=== PATIENT | female | born 1940 | race Caucasian/White ===

== ENCOUNTER → 2020-07-22 10:58 | Outpatient (BNVA) | payer MEDICARE, SELFPAY | PROVIDERS: PCP Internal Medicine Endocrinology, Diabetes & Metabolism; Visit Provider Physician Assistant | DX: G56.02 Carpal tunnel syndrome, left upper limb (principal) | CPT/HCPCS: 20526; 20550; 99212; J1020 ==

== ENCOUNTER → 2020-11-26 09:33 | Outpatient (BNVA) | payer MEDICARE, SELFPAY | PROVIDERS: PCP Internal Medicine Endocrinology, Diabetes & Metabolism; Visit Provider Physician Assistant | DX: G56.02 Carpal tunnel syndrome, left upper limb (principal) | CPT/HCPCS: 20526; 99212; J1020 ==

== ENCOUNTER → 2021-09-14 12:05 | Outpatient (BNVA) | payer MEDICARE, SELFPAY | PROVIDERS: PCP Internal Medicine Endocrinology, Diabetes & Metabolism; Visit Provider Physician Assistant | DX: G56.02 Carpal tunnel syndrome, left upper limb (principal) | CPT/HCPCS: 20550; 99212; J1020 ==

== ENCOUNTER → 2022-01-05 10:37 | Outpatient (BNVA) | payer MEDICARE, SELFPAY | PROVIDERS: PCP Internal Medicine Endocrinology, Diabetes & Metabolism; Visit Provider Physician Assistant | DX: G56.02 Carpal tunnel syndrome, left upper limb (principal) | CPT/HCPCS: 20526; 99212; J1100 ==

== ENCOUNTER 2022-02-14 14:38 | Outpatient (REF) | payer MEDICARE, SELFPAY ==
--- NOTE | ~2022-02-14 | XR_ITS ---
EXAMINATION: XR HAND, LEFT CLINICAL INFORMATION: Pain in left hand. COMPARISON: None TECHNIQUE: PA, lateral, and oblique views of the left hand. FINDINGS: There is loss of PIP and DIP joint space with periarticular spurring and soft tissue swelling. No visible acute fracture, dislocation or subluxation seen. There is diffuse osteopenia without acute fracture or dislocation. There is mild loss of 1st carpometacarpal joint space with moderate periarticular spurring. 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 There is diffuse mild osteopenia.
== END 2022-02-14 14:39 | disposition home or self-care (01) ==
LOC: HO.HOSX 14:38
PROVIDERS: PCP Internal Medicine Endocrinology, Diabetes & Metabolism; Visit Provider Orthopaedic Surgery
DX: M18.12 Unilateral primary osteoarthritis of first carpometacarpal joint, left hand (principal); G56.02 Carpal tunnel syndrome, left upper limb
CPT/HCPCS: 73130; 99212; J1020

== ENCOUNTER 2022-03-09 11:24 | Day surgery (SDC) | payer MEDICARE, SELFPAY ==
[2022-03-09 12:20] VITALS: BP 135/71; PULSE 94; RESP 16; TEMP 37.1; O2SAT 94
[2022-03-09] MEDS: HYDROcodone Bit/Acetam 5/325 TABLET 1 TAB PO (13:26)
--- NOTE | 2022-03-09 13:37 | MHC.SHP ---
Pre-Procedural Eval Section A Date of Service: 03/09/22 The patient is an INPATIENT: No Changes since office visit: No Cold of Flu in the past 2 weeks, No New Medical Problems, No Changes in Medication and No Patient answered all questions The History & Physical has been completed within 30 days and I have reviewed it.: Yes Section B Chief Complaint: Carpal tunnel syndrome, left upper limb Allergies: Allergies Allergy/AdvReac Type Severity Reaction Status Date / Time codeine [CODEINE] Allergy Unknown STOMACH Verified 02/14/22 15:37 UPSET morphine [MORPHINE] Allergy Unknown STOMACH Verified 02/14/22 15:37 UPSET oxycodone [From PERCOCET] Allergy Unknown STOMACH Verified 02/14/22 15:37 UPSET carisoprodol [From SOMA] AdvReac Unknown VOMITING Verified 02/14/22 15:37 hydromorphone [From DILAUDID] AdvReac Unknown VOMITING Verified 02/14/22 15:37 Plan I have reviewed the history and physical and performed a pertinent physical examination on my patient. No changes have occurred unless specified.
--- NOTE | 2022-03-09 13:37 | W.PM.OPN ---
Operative Note Operative Note Date of Service: 03/09/22 Narrative: Preop diagnosis: 1. left Carpal tunnel syndrome Postop diagnosis: same Procedure: 1. left Carpal tunnel release Surgeon: Haylie Eason MD Anesthesia: local block using 1% lidocaine with epinephrine Findings: Thickened transverse carpal ligament. EBL: Less than 5 mL Specimens: None Complications: None Disposition: Brought to recovery room in stable condition Plan: Follow-up for 10-14 days for wound check and suture removal Indications: The patient is 81 years old, with left carpal tunnel syndrome that has been unresponsive to nonoperative management. The risks and benefits of operative treatment including but not limited to risk of damage to blood vessels, nerves, tendons, infection, persistent pain, persistent symptoms, or possible need for additional surgery were discussed with the patient and the patient wishes to proceed with surgery. Procedure: Once consent was obtained a local block was performed using a combination of 1% lidocaine with epinephrine. ?Of note, perhaps 15-20 minutes after administering her local block the patient complained of 10/10 pain in her fingers and thumb.? There was no significant discomfort when administering the block.? Her fingers were noted to be warm and pink.? She had good active range of motion of the digits.? The area of the local block, which was lidocaine with epinephrine [id number] and some bicarb, was pale as we would expect and well anesthetized.? Again the fingers were warm and pink? and were Numb in the median nerve distribution.? Patient very much wanted to have some pain medication and express that on multiple occasions.? I end up giving her 1 tablet of Vicodin 5-325.? After that she said her fingers were feeling better.? The patient was then brought back to the operating suite and placed on the operative table in supine position. A tourniquet was applied to the proximal aspect of the left upper extremity and the limb was prepped and draped in a standard surgical fashion. Once assured that we had a good block, a 1.5 cm longitudinal incision was made centered over the carpal tunnel. The incision was made through the skin to the subcutaneous tissues using a #15 blade. Dissection was made down to the level of the transverse carpal ligament with care being taken to protect the palmar cutaneous nerve. Once the transverse carpal ligament was clearly visualized, a longitudinal incision was made in the transverse carpal ligament 1st using a #15 blade, then using tenotomy scissors under direct visualization. Care was taken to look for and protect the motor branch of the median nerve when seen in this area. Once satisfied with our carpal tunnel release the wound was copiously irrigated with normal saline and hemostasis was obtained with a brief period of local pressure. The skin edges were reapproximated with some 5.0 nylon suture material and a sterile dressing was applied. she had 0 pain after her carpal tunnel release. The patient appears to have tolerated the procedure well and with no complications. All digits were well vascularized at the conclusion of the case.
--- NOTE | 2022-03-09 14:48 | PC.NURSE ---
PT REMAINS AWAKE, A/O X'S 3 WITHOUT COMPLAINT OF PAIN/DISCOMFORT AT THIS TIME. PATIENT WAS GIVEN VICODIN FOR COMPLAINT OF LEFT HAND PAIN. PT STATES FEELING BETTER AT THIS TIME. PT'S DAUGHTER AT BEDSIDE. PATIENT DISCHARGED HOME WITH DAUGHTER. DAUGHTER STATES SHE IS SPENDING THE NIGHT WITH HER MOM.
--- NOTE | 2022-03-09 14:53 | PC.NURSE ---
POST OP VSS. BP 125/58, P93, RR 20, 02 SAT 96%. TEMP 99.2
== END 2022-03-09 14:52 | disposition home or self-care (01) ==
PROVIDERS: PCP Internal Medicine Endocrinology, Diabetes & Metabolism; Visit Provider Orthopaedic Surgery
PROC: (CPT 64721; principal; 2022-03-09 13:00)
DX: G56.02 Carpal tunnel syndrome, left upper limb (principal); M18.12 Unilateral primary osteoarthritis of first carpometacarpal joint, left hand; R20.0 Anesthesia of skin; J45.909 Unspecified asthma, uncomplicated; Z79.51 Long term (current) use of inhaled steroids; Z79.899 Other long term (current) drug therapy; Z88.8 Allergy status to other drugs, medicaments and biological substances; Z87.891 Personal history of nicotine dependence
CPT/HCPCS: 64721; J0171

== ENCOUNTER 2025-05-04 10:39 | Emergency (ER) | payer MEDICARE, SELFPAY ==
--- NOTE | ~2025-05-04 | XR_ITS ---
EXAMINATION: XR THORACIC SPINE CLINICAL INFORMATION: mid back pain COMPARISON: None available. TECHNIQUE: AP lateral and swimmer's projection. FINDINGS: There is radiopaque material within the vertebral body of T12. Multilevel marginal osteophyte formation and endplate sclerosis and decreased intervertebral disc height at multiple levels. No acute cortical disruption or gross malalignment. Osteopenia versus osteoporosis. Radiopaque anchors in the humeral head seen on the lateral projection. Calcified plaques throughout the aorta. XR/XR thoracic spine 2V IMPRESSION: Multilevel cervical thoracic and upper lumbar spondylosis without acute fracture or gross listhesis on x-ray. Status post kyphoplasty/vertebroplasty likely T12. Electronically signed by: Luke Arnett MD 05/04/2025 12:27 PM EDT
--- NOTE | ~2025-05-04 | XR_ITS ---
EXAMINATION: XR LUMBAR SPINE 2-3 VIEWS HISTORY: low back pain COMPARISON: There are no prior studies for comparison. FINDINGS: AP, lateral, and coned down views of the lumbar spine are submitted. Osseous mineralization is normal. There is mild dextroscoliosis. The patient is status post T12 vertebroplasty. The lumbar vertebral bodies maintain normal height. There is diffuse moderate degenerative disc disease with disc space narrowing and osteophyte formation. There is slight anterolisthesis of L3 on L4. There is osteoarthritis of the facet joints. There is calcification of the abdominal aorta. XR/XR lumbar spine 2-3V IMPRESSION: Mild dextroscoliosis and slight anterolisthesis of L3 on L4. There is moderate degenerative disc disease. Electronically signed by: Leandro Joyce MD 05/04/2025 12:26 PM EDT
[2025-05-04 10:44] VITALS: BP 150/64; PULSE 82; RESP 16; TEMP 36.3; O2SAT 98; BMI 28.3
--- NOTE | 2025-05-04 10:47 | ECG_ITS ---
Test Reason : CP Blood Pressure : */* mmHG Vent. Rate : 78 BPM Atrial Rate : 78 BPM P-R Int : 158 ms QRS Dur : 80 ms QT Int : 382 ms P-R-T Axes : 48 11 45 degrees QTcB Int : 435 ms Normal sinus rhythm Normal ECG When compared with ECG of 10-Apr-2020 14:35, No significant change was found Referred By: Generic ED Physician Electronically Signed By: VIN EMMANUEL
[2025-05-04 10:56] VITALS: BP 139/57; PULSE 77; RESP 17; TEMP 36.9; O2SAT 95
--- NOTE | 2025-05-04 11:01 | PC.NURSE ---
Patient presents to ED c/o upper back pain rated 7/10, non radiating. Patient reports having three herniated disks Pain started abut a week ago and has become worse. Denies numbness/tingling, SOB, chest pain, injuries +CMS +ROM Provider in to see patient Plan of care on going
--- NOTE | 2025-05-04 11:44 | ED_ITS ---
HPI - General Adult General Chief complaint: General Medical Stated complaint: upper back pain Time Seen by Provider: 05/04/25 11:10 Source: patient Mode of arrival: ambulatory Limitations: no limitations History of Present Illness ED Provider: HPI narrative: 84-year-old woman with a history of back issues, she is presenting with upper to mid back pain going on for 2 3 months, the fairly constant, worse at night, worse with positioning, elevation of her shoulders, no fevers or chills no chest pain no shortness of breath no abdominal pain no numbness in her hands she does have history of carpal tunnel release, no numbness in her legs, no loss of bowel or bladder function. No fevers or chills. No dysuria or hematuria. Related Data Home Medications ?Medication ?Instructions ?Recorded ?Confirmed alendronate 5 mg tablet 5 mg PO DAILY 07/22/20 apixaban 5 mg tablet (Eliquis) 5 mg PO BID 07/22/20 atorvastatin 10 mg tablet 10 mg PO BEDTIME 07/22/20 diltiazem HCl 120 mg 120 mg PO DAILY 07/22/20 capsule,extended release 24 hr ipratropium bromide 17 2 puff inhalation Q8H mcg/actuation HFA aerosol inhaler (Atrovent HFA) lorazepam 2 mg/mL oral concentrate 0.25 mg PO BID PRN 07/22/20 propafenone 225 mg 225 mg PO Q12H 07/22/20 capsule,extended release 12 hr estradiol 0.01% (0.1 mg/gram) 1 g vaginal 3XW 02/14/22 vaginal cream Previous Rx's ?Medication ?Instructions ?Recorded cephalexin 500 mg capsule 500 mg PO QID cellulitis 10 days 05/20/22 #40 caps dexamethasone 4 mg tablet 4 mg PO DAILY #6 tabs lidocaine 5 % topical patch 1 patch topical DAILY #30 ea 05/04/25 Allergies Allergy/AdvReac Type Severity Reaction Status Date / Time codeine (CODEINE) Allergy Unknown STOMACH Verified 05/04/25 10:46 UPSET morphine (MORPHINE) Allergy Unknown STOMACH Verified 05/04/25 10:46 UPSET oxycodone (From PERCOCET) Allergy Unknown STOMACH Verified 05/04/25 10:46 UPSET carisoprodol (From SOMA) AdvReac Unknown VOMITING Verified 05/04/25 10:46 hydromorphone (From DILAUDID) AdvReac Unknown VOMITING Verified 05/04/25 10:46 Review of Systems Constitutional: Constitutional: Reports as per [facility] Past Medical History Medical History Herniated disc Asthma Carpal tunnel syndrome, left upper limb Surgical History History of cholecystectomy History of hysterectomy History of shoulder surgery Social History Social History Patient Tobacco Use Status: Former Tobacco user Tobacco use type: Cigarette Smoked in Last 30 Days: No Use of substances other than those prescribed or required for medical reasons: No Advance Directives: Yes Advance Directives Information Provided: No Advance Directives on File: No Do you have a plan to hurt others: No Plan Current occupation: lt handed Physical Exam ED Vital Signs: Vital Signs - 24 hr 05/04/25 10:44 05/04/25 10:56 05/04/25 12:07 Temperature 97.3 F 98.5 F 98.5 F Pulse Rate 82 77 77 Respiratory Rate 16 17 17 Blood Pressure 150/64 H 139/57 L 139/57 L Pulse Oximetry 98 95 95 Oxygen Delivery Method Room Air Room Air Room Air BMI result Body Mass Index 28.3 Const Other: * Gen: ?Overall well-appearing patient * Neck: Supple, no LAD, no paraspinal or midline tenderness * CV: RRR, no obvious murmurs appreciated, radial pulses intact bilaterally * Resp: ?No wheezing rales rhonchi no stridor moving air well * Abd: ?Bowel sounds are present, no tenderness no rebound no rigidity * MSK: FROM, strength 5/5 all extremities, no sensory deficits bilateral lower extremities bilateral upper extremities, tenderness paraspinal area worse to the right just below her shoulder blade * Skin: Warm, dry, intact, no rashes * Neuro: ?Alert and oriented x3, moving upper and lower extremities symmetrically, no obvious facial asymmetry noted Medications Administered Discontinued Medications Generic Name Dose Route Start Last Admin Trade Name Freq PRN Reason Stop Dose Admin Lidocaine 1 patch 05/04/25 11:45 05/04/25 12:43 Lidocaine 4 % Patch Adh..Patch TRANSDERMA 05/04/25 11:46 1 patch ONCE ONE Administration Protocol Lidocaine HCl 10 ml 05/04/25 11:45 05/04/25 12:43 Lidocaine Hcl 1 % Mpf 5 Ml Vial SUBCUT 05/04/25 11:46 Not Given ONCE ONE Procedures Procedure Narrative Procedure Narrative: Patient provided verbal consent for trigger point injections to her mid back, 5 areas of trigger points identified to the right paraspinal midthoracic area curving around her lower border of the scapula, area was cleaned with alcohol, using 21 gauge needle total of 10 cc lidocaine with epinephrine was injected with aspiration prior to the injection, patient tolerated procedure well, adhesive bandage applied. Medical Decision Making Medical Decision Making MDM Narrative: I consideration for this patient's evaluation as below, I did not feel further blood work is indicated, I did obtain ECG to make sure this is not cardiac related though this is a chronic issue going on for the past 3 months fairly constant, on exam she has clearly reproducible paraspinal tenderness along her mid back, likely component of scapulothoracic dyskinesia, no rashes they are to suspect zoster, she has no sensory motor deficits in upper or lower extremity to suspect underlying myelopathy or spinal cord compression and no fevers no risk factors for diskitis osteomyelitis or cauda equina, overall well-appearing, breathing well nothing on exam to suspect that this is a chronic pneumothorax necessitating further imaging such as x-ray. I offered injection to the 3-4 trigger points identified on patient's exam patient provided verbal consent, as she is on Eliquis we will inject with lidocaine and epinephrine with a smaller needle, we will reassess, anticipating discharge with lidocaine patches, possibly a few days' worth of steroids or muscle relaxants and follow up with her PCP, this is now becoming and has been, chronic issue and she needs physical therapy with local modalities to the area. And if she needs further workup such as MRI this needs to be done on outpatient basis as we will be recommended to her PCP. Differential Diagnosis Differential Diagnoses: The differential diagnosis associated with the presentation includes (ACS, cauda equina, diskitis osteomyelitis, spinal cord compression, myelopathy, trauma) Independent Interpretation I performed an independent interpretation of an: EKG (78 beats per minute otherwise normal ECG without dysrhythmia, AV arnaldo blocks or ST-T changes to suspect underlying ACS, my independent interpretation) and Plain X-Ray (Signi ficant arthritic changes, mid back vertebroplasty, no acute fractures noted) Radiology Impression Discussion of test interpretation with radiology: I have reviewed the radiologist's reading. (MPRESSION: Multilevel cervical thoracic and upper lumbar spondylosis without acute fracture or gross listhesis on x-ray. Status post kyphoplasty/vertebroplasty likely T1) Tests considered The following testing was considered but not selected: Blood work, urinalysis, chest x-ray Prescription Management I considered prescription management with: Pain Medication Discharge Plan Discharge Clinical Impression: Spasm of back muscles Patient Disposition: Home, Self-Care Additional Instructions: Please continue using lidocaine patches to her mid back, steroids as prescribed hopefully that will help with some degree of inflammation, I typically do not prescribe anticipate months medics to falx over 80 years old as it typically has multiple medical side effects such as urinary retention, constipation, dizziness and increased fall risk, you can take Tylenol 975 mg every 6 hours around the clock as needed for pain, N/C a PCP you may need additional studies such as outpatient MRI, you may need physical therapy, or referral to pain management for continues injections, the area of spasm was injected today, if you spike fevers develop any redness around the area that looks like a potential postprocedural infection, come back to the ER Prescriptions: New lidocaine 5 % adhesive patch,medicated 1 patch topical DAILY Qty: 30 0RF Rx Instructions: leave on most painful area for up to 12 hrs dexamethasone 4 mg tablet 4 mg PO DAILY Qty: 6 0RF Rx Instructions: Day 1: 3 pills Day 2 : 2 pills day 3: 1 pill No Action cephalexin 500 mg capsule 500 mg PO QID 10 Days Qty: 40 0RF alendronate 5 mg tablet 5 mg PO DAILY atorvastatin 10 mg tablet 10 mg PO BEDTIME Atrovent HFA 17 mcg/actuation HFA aerosol inhaler 2 puff inhalation Q8H diltiazem HCl 120 mg capsule,extended release 24hr 120 mg PO DAILY Eliquis 5 mg tablet 5 mg PO BID lorazepam 2 mg/mL concentrate 0.25 mg PO BID PRN propafenone 225 mg capsule,extended release 12 hr 225 mg PO Q12H estradiol 0.01 % (0.1 mg/gram) cream 1 g vaginal 3XW Referrals: Brian Tillman MD [Primary Care Provider, Endocrinology] - 2 weeks Clinical Impression: Spasm of back muscles Print Language: Chilean
[2025-05-04 12:07] VITALS: BP 139/57; PULSE 77; RESP 17; TEMP 36.9; O2SAT 95
[2025-05-04] MEDS: Lidocaine 4 % Patch ADH..PATCH 1 PATCH TRANSDERMA (12:43)
--- OUTSIDE RECORDS SUMMARY | 2025-05-04 12:57 | XMS_ITS | Continuity of Care Document ---
Author Organization [facility] [address] [place] [address] Phone [phone] Care Team Providers Care Economic Geographer Name Role Phone Brian Tillman M.D. Care Team Information Re ceiver [phone] Problems Active Problems Provider Date Atrial fibrillation Brian Tillman M.D. Onse t: 03/02/2023 Chronic obstructive lung disease Brian sylvester M.D. Onset: 03/02/2023 Impaired fasting glycemia Coby Rivera Onset: 03/02/2023 Compression fracture of vertebral column Brian alicia M.D. Onset: 08/24/2023 Social History Type Date Description Comments Sex Female Sex Unknown Tobacco Use Start: Unknown End: Unknown Quit 30 years ago ETOH Use Denies alcohol use Tobacco Use Start: Unknown End: Unknown Patient is a former smoker Smoking Status Reviewed: 08/24/23 Patient is a former smoker Allergies and adverse reactions Active Allergies Criticality Reaction Severity Comments Date Dilaudid Unable to assess criticality 03/02/2023 Codeine Unable to assess criticality 03/02/2023 Percocet Unable to assess criticality 03/02/2023 Soma Unable to assess criticality 03/02/2023 Medications Active Medications SIG Qnty Indications Order ing Provider Date [id number] Tablets 1 tablet by mouth every 8 hours as needed 30tabs Brian Tillman M.D. 10/28/2024 Estradiol0.1mg/GM Cream Apply as Directed 2 Times Per Week 42.5units Brian Tillman M.D. 04/11/2024 Amoxicillin/Clavulan ate [id number] Tablets 1 tab by mouth twice a day 20tabs Brian Tillman M.D. 06/13/2023 Alendronate Kuoswe06es Tablets Take 1 Tablet By Mouth One Time Per Week 12tabs Brian Tillman M.D. 01/12/2023 Lorazepam0.5mg Tablets 1 tabs by mouth every day as needed 30tabs Brian Tillman M.D. 05/02/2022 Kpzjvak4pf Tablets 1 by mouth twice a day Unknown Atorvastatin Bwpmkad20kn Tablets Take 1 Tablet By Mouth Every Day 90tabs Brian Tillman M.D. Diltiazem HCL ER Coated [id number] Caps ER 24HR Take 1 Capsule By Mouth Every Day Unknown Vital Signs Date Vital Result Comment 12/10/2024 1:07pm BP Systolic 136 mmHg BP Diastolic 80 mmHg Heart Rate 72 /min Height 63 inches 5'3 Weight 180.12 lb BMI (Body Mass Index) 31.9 kg/m2 Results Test Acquired Date Facility Test Result H/L Range Note Lipid Panel 02/20/2024 [facility] Cholesterol, Total 142 mg/dL 100-199 Triglycerides 140 mg/dL 0-149 HDL Cholesterol 42 mg/dL >39 VLDL Cholestero l Christian 25 mg/dL 5-40 LDL Chol Calc ([facility]) 75 mg/dL 0-99 LDL Calc Comment: TNP Non-HDL Cholesterol 100 mg/dL 0-129 Urinalysis Complete 02/20/2024 [facility] Specific [place] 1.023 1.005-1.030 pH 5.0 5.0-7.5 Urine-Color Yellow Yellow Appearance Cloudy Abnormal Clear WBC Esterase 1+ Abnormal Negative Protein Trace Negative/Tr angel Glucose Negative Negative Ketones Trace Abnormal Negative Occult Blood Negative Negative Bilirubin Negative Negative Urobilinogen,Se m i-Qn 0.2 mg/dL 0.2-1.0 Nitrite, Urine Negative Negative Microscopic Examination See below: 1 Microscopic Examination TNP WBC 11-30 /hpf Abnormal 0 - 5 RBC 0-2 /hpf 0 - 2 Epithelial Cell s (non renal) >10 /hpf Abnormal 0 - 10 Epithelial Cell s (renal) TNP Casts None seen /lpf None seen Cast Type TNP Crystals TNP Crystal Type TNP Mucus Threads TNP Bacteria Few None seen/Few Yeast TNP Trichomonas TNP Comment TNP Complete Abc With Diff 02/20/2024 [facility] WBC 7.9 x10E3/uL 3.4-10.8 RBC 4.51 x10E6/uL 3.77-5.28 Hemoglobin 13.7 g/dL 11.1-15.9 Hematocrit 41.8 % 34.0-46.6 MCV 93 fL 79-97 MCH 30.4 pg 26.6-33.0 MCHC 32.8 g/dL 31.5-35.7 RDW 12.3 % 11.7-15.4 Platelets 243 x10E3/uL 150-450 Neutrophils 62 % Not Estab. Lymphs 27 % Not Estab. Monocytes 8 % Not Estab. Eos 2 % Not Estab. Basos 1 % Not Estab. Immature Cells TNP Neutrophils (Absolute) 4.9 x10E3/uL 1.4-7.0 Lymphs (Absolute) 2.1 x10E3/uL 0.7-3.1 Monocytes(Absol u te) 0.7 x10E3/uL 0.1-0.9 Eos (Absolute) 0.2 x10E3/uL 0.0-0.4 Baso (Absolute) 0.0 x10E3/uL 0.0-0.2 Immature Granulocytes 0 % Not Estab. Immature Grans (Abs) 0.0 x10E3/uL 0.0-0.1 NRBC TNP Hematology Comments: TNP PTH, Intact 02/20/2024 [facility] PTH, Intact 33 pg/mL 15-65 Comp. Metabloic Panel (14) 02/20/2024 [facility] Glucose 117 mg/dL High 70-99 BUN 16 mg/dL 8-27 Creatinine 0.85 mg/dL 0.57-1.00 eGFR 68 mL/min/1.73 >59 BUN/Creatinine Ratio 19 12-28 Sodium 143 mmol/L 134-144 Potassium 4.7 mmol/L 3.5-5.2 Chloride 105 mmol/L 96-106 Anion Gap 16.0 mmol/L 10.0-18.0 Carbon Dioxide, Total 22 mmol/L 20-29 Calcium 9.5 mg/dL 8.7-10.3 Protein, Total 6.6 g/dL 6.0-8.5 Albumin 4.4 g/dL 3.7-4.7 Globulin, Total 2.2 g/dL 1.5-4.5 A/G Ratio 2.0 Bilirubin, Total 1.0 mg/dL 0.0-1 .2 Alkaline Phosphatase 74 IU/L 44-121 Ast (Sgot) 20 IU/L 0-40 Alt (SGPT) 15 IU/L 0-32 Vitamin D, 25-Hydroxy 02/20/2024 [facility] Vitamin D, 25-Hydroxy 28.1 ng/mL Low 30.0-100.0 2 TSH reflex to T4F 02/20/2024 [facility] TSH reflex to T4F 2.550 uIU/mL 0.450-4.500 1 Microscopic was sylvain cated and was performed. 2 Vitamin D deficiency has been defined by the [place] [employer] and an Endocrine Society practice guideline as a level of serum 25-OH vitamin D less than 20 ng/mL (1,2). The Endocrine Society went on to further define vitamin D insufficiency as a level between 21 and 29 ng/mL (2). 1. IOM ([place] [employer]). 2010. Dietary reference intakes for calcium and D. [place]: The National Academies Press. 2. Sanam MF, Anshul CARSON, Jace PARKS, et al. Evaluation, treatment, and prevention of vitamin D deficiency: an Endocrine Society clinical practice guideline. JCEM. 2011 Mar; 96(7):1911-30. Medical Devices Description No Information Available Encounters Type Date Location Provider Dx Diagnosis Office Visit 12/10/2024 1:15p Main Office Brian Tillman M.D. I48.0 Paroxysmal atrial fibrillation F41.9 Anxiety disorder, un specified M81.0 Age-related osteopor osis w/o current pathological fracture E78.5 Hyperlipidemia, unsp ecified Assessments Date Code Description Provider 12/10/2024 I48.0 Paroxysmal atrial fibrillati on Brian Tillman M.D. 12/10/2024 F41.9 Anxiety Brian sylvester M.D. 12/10/2024 M81.0 Osteoporosis Brian sylvester M.D. 12/10/2024 E78.5 Hyperlipidemia Brian marin M.D. Plan of Treatment Future Appointment(s):* 06/17/2025 2:15 pm - Brian Tillman M.D. at Main Office 12/10/2024 - Brian Tillman M.D.* I48.0 Paroxysmal atrial fibrillation * F41.9 Anxiety * M81.0 Osteoporosis * E78.5 Hyperlipidemia Functional Status Description No Information Available Mental Status Description No Information Available Referrals Refer to Reason for Referral Status Appt Hodan Marks MD [facility] FASCIAL FIBROMATOS IS Closed 04/18/2023 [address] [facility] [facility] [address] [place] [address] [phone]
--- OUTSIDE RECORDS SUMMARY | 2025-05-04 12:57 | XMS_ITS | Clinical Summary ---
Author Organization [facility] Address [address] [place] [address] Phone Care Team Providers Care [employer] Name Role Phone Brian Tillman MD Primary Care Provider [phone] Allergies Active Allergy Reactions Criticality Noted Date Comments Aspirin 08/14/2024 Carisoprodol 08/14/2024 Codeine 08/14/2024 Morphine 08/14/2024 Oxycodone Hcl 08/14/2024 Oxycodone-Acetaminophen 10/18/2020 Medications albuterol HFA (PROAIR HFA ; PROVENTIL HFA ; VENTOLIN HFA) 90 mcg/actuation inhaler as needed. Active alendronate (FOSAMAX) 70 mg tablet 70 mg once a week. Every Sunday 9 Active atorvastatin (LIPITOR) 10 mg tablet 10 mg daily. Active cholecalciferol (VITAMIN D-3) 25 mcg (1,000 unit) capsule Take by mouth daily. Active estradioL (ESTRACE) 0.01 % (0.1 mg/gram) vaginal cream Place 1 g vaginally at bedtime. Active fluticasone HFA (FLOVENT HFA) 110 mcg/actuation inhaler daily. Active LORazepam (ATIVAN) 0.5 mg tablet 0.5 mg as needed. 6 Active turmeric root extract 500 mg capsule Take 1,000 mg by mouth daily. Active ascorbic acid/vitamin E/biotin (HAIR, SKIN, NAILS WITH BIOTIN ORAL) Take by mouth daily. Active docusate sodium (STOOL SOFTENER ORAL) Take by mouth daily. Active Lacto 41/B.animalis,b ifid/FOS (ULTIMATE PROBIOTIC-10 ORAL) Take by mouth daily. Active methocarbamoL (ROBAXIN) 500 mg tablet Take 1 tablet (500 mg total) by mouth if needed for muscle spasms. Active Eliquis 5 mg tablet TAKE 1 TABLET BY MOUTH TWICE A DAY 180 tablet 2 5 Active dilTIAZem CD (CARDIZEM CD) 120 mg 24 hr capsule TAKE 1 CAPSULE BY MOUTH EVERY DAY 90 capsule 2 5 Active Active Problems Problem Noted Date Diagnosed Date Asthma 09/19/2022 Hyperlipidemia 10/20/2020 Overview (08/14/2024): Last Assessment & Plan: The patient has not had a lipid panel completed since 2020, she was in good control then. We will update a lipid panel and she will continue on atorvastatin 10 mg daily we discussed the importance of following a heart healthy diet. Assessment & Plan (11/05/2024 2:31 PM EST): Will obtain new fasting lipid panel to reassess her lipid control. In the meantime, she will continue her current atorvastatin dose. Orders: Lipid panel; Future Comprehensive metabolic panel; Future Mitral regurgitation 10/20/2020 Overview (08/14/2024): Last Assessment & Plan: The patient has mild to moderate mitral valve insufficiency on echocardiogram done in September 2020. Echocardiogram from October, showed mild mitral regurgitation. Will continue to monitor. Assessment & Plan (11/05/2024 2:31 PM EST): Patient has a history of mitral regurgitation. Recent echocardiogram October 2023 was noted to be mild in severity. We will continue to monitor with periodic echocardiograms to monitor for progression. Atrial fibrillation (CMS/HCC V24, CMS/HCC V28) 0 10/18/2020 Overview (08/14/2024): Last Assessment & Plan: Patient has a history of paroxysmal atrial fibrillation, she underwent an ablation in July 2022 with a recurrence in August 2022 that required a cardioversion. She is currently on rate control with diltiazem and anticoagulation therapy with Eliquis. She is tolerating both medications well. Today she is in normal sinus rhythm. Assessment & Plan (11/05/2024 2:31 PM EST): Patient has a history of paroxysmal atrial fibrillation status post ablation in July 2022 with reoccurrence in August 2023 status post cardioversion. She denies any perception of atrial fibrillation or reoccurrence. She continues on rate control therapy with diltiazem and her heart rate is well-controlled today. She also continues on anticoagulation therapy with Eliquis and denies any excessive bruising or bleeding. No changes to medical therapies. Resolved Problems Problem Noted Date Diagnosed Date Resolved Date Chest pain 05/02/2024 11/05/2024 Overview (08/14/2024): Last Assessment & Plan: Patient today describes feeling a chest discomfort that is atypical in nature. She reports feeling a pressure in the left side of her chest occasionally at rest. She reports this last for several minutes and then resolves spontaneously. Reports this may occur several times a week. She denies any chest discomfort with exertion. She had a negative nuclear stress test in 2019. Since this is a new discomfort, an updated nuclear stress test has been ordered. Patient to call office with new or worsening symptoms. She will seek emergent medical attention if she experiences chest discomfort that lasts longer than 10 to 15 minutes and does not resolve with rest. Atrial flutter (CMS/HCC V24, CMS/HCC V28) 11/14/2021 11/05/2024 Overview (08/14/2024): Last Assessment & Plan: The patient has a history of atrial flutter status post ablation in July 2022. She has not had any recurrence of her atrial flutter after the procedure. We will continue her current anticoagulation therapy. Social History Tobacco Use Types Packs/Day Years Used Date Smoking Tobacco: Former Smokeless Tobacco: Former Tobacco Cessation:Counseling Given: Not Answered Alcohol Use Standard Drinks/Week Comments No 0 (1 standard drink = 0.6 oz pur e alcohol) Comments Unknown Sex and Gender Information Value Date Recorded Sex Assigned at Not on file Legal Sex Female 2:19 PM EST Gender Identity Not on file Sexual Orientation Not on file Obstetrics History Last Filed Vital Signs Vital Sign Reading Time Taken Comments Blood Pressure 128/60 11/05/2024 12:59 PM EST Pulse 68 11/05/2024 12:59 PM EST Temperature - - Respiratory Rate - - Oxygen Saturation 97% 11/05/2024 12: 59 PM EST Inhaled Oxygen Concentration - - Weight 80.6 kg (177 lb 11.2 oz) 025 12:59 PM EST Height 162.6 cm (5' 4 ) 11/05/2024 12:5 9 PM EST Body Mass Index 30.5 11/05/2024 12:59 PM EST Plan of Treatment Upcoming Encounters Date Type Department Care Team (Late st Contact Info) Description 07/01/2025 2:40 PM EDT Office Visit [facility] [address] [place] [address] [address] [place] [address] Cielo Covington NP [address] [place] [address] [address] [place] [address] Health Maintenance Due Date Last Done Comments Pneumococcal Vaccine: 50+ Years (2 of 2 - PCV) 04/10/2020 04/10/2019 Falls Risk Assessment 08/19/2022 Medicare Annual Wellness Visit 08/19/2022 Osteoporosis Screening (Bone Density Screening) 08/19/2022 Social Influencers of Health Screening 08/19/2022 Depression Screening 09/10/2024 COVID-19 Vaccine ( season) 2024 06/06/2024, 06/28/2023, 08/09/2022, Additional history exists Influenza Vaccine (#1) 2025 , 07/18/2023, 06/26/2022, Additional history exists Cholesterol Screening (Lipid Panel) 12/05/2029 12/05/2024 DTaP,Tdap,and Td Vaccines (2 - Td or Tdap) 10/12/2031 10/12/2021 Zoster Vaccines Completed 08/15/2019, 04/12/2019 RSV Immunization Adult Patients Completed 05/30/2023 HIB Vaccines Aged Out No longer eligi ble based on patient's age to complete this topic HPV Vaccines Aged Out No longer eligi ble based on patient's age to complete this topic Hepatitis A Vaccines Aged Out No long er eligible based on patient's age to complete this topic Hepatitis B Vaccines Aged Out No long er eligible based on patient's age to complete this topic IPV Vaccines Aged Out No longer eligi ble based on patient's age to complete this topic MMR Vaccines Aged Out No longer eligi ble based on patient's age to complete this topic Meningococcal ACWY Vaccine Aged Out N o longer eligible based on patient's age to complete this topic Meningococcal B Vaccine Aged Out No l onger eligible based on patient's age to complete this topic RSV Immunization Patients Under 20 months Aged Out No longer eligible based on patient's age to complete this topic Varicella Vaccines Aged Out No longer eligible based on patient's age to complete this topic Procedures Procedure Name Priority Date/Time Associated Diagnosis Comments LIPID PANEL Routine 12/05/2024 10:18 AM EDT Mixed hyperlipidemia from Last 3 Months or Most Recently Relevant to Health Maintenance Results * Lipid panel (12/05/2024 10:18 AM EDT) Cholesterol Total 142 100 - 199 mg/dL [facility] Triglycerides 102 0 - 149 mg/dL [facility] 1 HDL Cholesterol 46 >39 mg/dL [facility] 1 VLDL Cholesterol Calculated 19 5 - 40 mg/dL [facility] 1 LDL Chol Calc (NIH) 77 0 - 99 mg/dL [facility] 1 Blood Venous blood specimen / Unknown 12/05/2024 10:18 AM EDT 12/05/2024 Narrative [facility] 1 - 12/06/2024 1:06 AM EDT Performed at: 01 - [facility] [address] [id number] [place] Induction: Karen Moyer MD, Phone: [phone] Cielo Covington NP LAB BLOOD ORDERABLES Final Result [facility] 1 from Last 3 Months or Most Recently Relevant to Health Maintenance Insurance [employer] - [place] MEDICARE ADVANTAGE Care Teams [employer] Relationship Specialty Start Date End Date Brian Tillman MD [address] [place] [address] [address] [place] [phone] PCP - General Endocrinology 08/04/20
[2025-05-04 13:01] VITALS: BP 139/57; PULSE 77; RESP 17; TEMP 36.9; O2SAT 95
== END 2025-05-04 13:09 | disposition home or self-care (01) ==
PROVIDERS: Emergency Provider Emergency Medicine; PCP Internal Medicine Endocrinology, Diabetes & Metabolism
DX: M54.6 Pain in thoracic spine (principal); M62.830 Muscle spasm of back; R07.89 Other chest pain; Z79.01 Long term (current) use of anticoagulants; Z79.899 Other long term (current) drug therapy; Z87.891 Personal history of nicotine dependence
CPT/HCPCS: 20553; 72070; 72100; 93005; 99284; 99285

== ENCOUNTER → 2025-05-04 10:47 | Outpatient (BNV) | payer MEDICARE, SELFPAY | PROVIDERS: Emergency Provider Emergency Medicine; PCP Internal Medicine Endocrinology, Diabetes & Metabolism; Visit Provider Internal Medicine | DX: R07.9 Chest pain, unspecified (principal) | CPT/HCPCS: 93010 ==

== ENCOUNTER → 2025-05-04 11:45 | Outpatient (BNV) | payer MEDICARE, SELFPAY | PROVIDERS: Emergency Provider Emergency Medicine; PCP Internal Medicine Endocrinology, Diabetes & Metabolism; Visit Provider Radiology Diagnostic Radiology | DX: M43.16 Spondylolisthesis, lumbar region (principal); M47.812 Spondylosis without myelopathy or radiculopathy, cervical region | CPT/HCPCS: 72070; 72100 ==